=== PATIENT | male | born 1975 | race American Indian/Alaskan Native ===

== ENCOUNTER 2017-03-04 18:51 | Emergency (ER) | payer OTHER ==
[2017-03-04 20:28] VITALS: BP 136/88
[2017-03-04 21:08] LABS: Basophils % (Auto) 0.6 % (0.0-1.8); Eosinophils % (Auto) 1.5 % (0.0-4.3); Hematocrit 40.2 % (35.5-45.6); Hemoglobin 13.1 gm/dl (11.8-15.2); Mean Corpuscular HGB Conc 33 % (32-34); Mean Corpuscular Hemoglobin 28 pg (28-32); Mean Corpuscular Volume 86 fl (84-94); Platelet Count 176 K/mm3 (140-440); Red Blood Count 4.69 M/mm3 (3.65-5.03); White Blood Count 10.5 K/mm3 (4.5-11.0)
--- NOTE | 2017-03-04 21:30 | XRay Report ---
FINAL REPORT PROCEDURE: XR ANKLE 3 RT TECHNIQUE: Right ankle, three views HISTORY: pain to heel rad up leg, send for report COMPARISON: No prior studies are available for comparison. FINDINGS: No acute fracture or dislocation is seen. No focal osseous lesions are identified. Mild osteoarthritic changes are present. There is a 7 millimeter plantar calcaneal enthesophyte. There is a 4 millimeter enthesophyte at the Achilles insertion. IMPRESSION: No acute fracture is seen. Other findings as above.
[2017-03-04 21:31] LABS: Anion Gap 17 mmol/L; Blood Urea Nitrogen 12 mg/dL (9-20); Carbon Dioxide 26 mmol/L (22-30); Chloride 98.1 mmol/L (98-107); Glucose 158 mg/dL (75-100); Potassium 3.5 mmol/L (3.6-5.0); Sodium 138 mmol/L (137-145); Uric Acid 10.9 mg/dL (3.5-7.6)
--- NOTE | 2017-03-04 23:42 | Emergency Department Report ---
ED Lower Extremity HPI - General Chief Complaint: Extremity Injury, Lower Stated Complaint: SWOLLEN R LEG/R HEEL PAIN Time Seen by Provider: 03/04/17 23:20 Source: patient, family Mode of arrival: Ambulatory Limitations: No Limitations - History of Present Illness Initial Comments: Patient here complaining of right heel pain since swelling to right ankle. Denies any trauma. Denies history of gout. He said he's been taking ibuprofen which helps a little bit none today. Patient has no medical history per patient and no surgical history. Pain is 4-10 and it comes and goes worse with weightbearing. Denies any fever or chills. Denies any numbness or tingling to extremities. MD Complaint: other (pain to right ankle and heel) Onset/Timin -: days(s) Injury: Ankle: Right (pain and swelling), Foot: Right (pain to heel) Type of Injury: unknown Place: home Severity: mild Severity scale (0 -10): 4 Improves With: NSAID Worsens With: weight bearing, movement, palpation Context: other (none) Associated Symptoms: swelling, able to partially bear weight. denies: numbness , tingling, unable to bear weight Treatments Prior to Arrival: other (none) - Related Data Previous Rx's Medication Instructions Recorded Last Taken Type Ibuprofen [Motrin] 600 mg PO Q8H PRN #15 tablet 03/05/17 Unknown Rx predniSONE [Deltasone] 50 mg PO QDAY #5 tab 03/05/17 Unknown Rx Allergies Allergy/AdvReac Type Severity Reaction Status Date / Time No Known Allergies Allergy Verified 03/04/17 20:23 ED Review of Systems ROS: Stated complaint: SWOLLEN R LEG/R HEEL PAIN Other details as noted in HPI Comment: All other systems reviewed and negative Constitutional: denies: chills, fever ENT: denies: throat pain Respiratory: no symptoms reported Cardiovascular: denies: chest pain, palpitations, edema, syncope Gastrointestinal: denies: nausea, vomiting Musculoskeletal: joint swelling, arthralgia. denies: back pain, myalgia Skin: denies: rash Neurological: abnormal gait (to right ankle pain). denies: headache, weakness, numbness, paresthesias, confusion, vertigo ED Past Medical Hx - Past Medical History Previous Medical History?: No - Surgical History Past Surgical History?: No - Family History Family history: no significant - Social History Smoking Status: Never Smoker Substance Use Type: None - Medications Home Medications: Home Medications Medication Instructions Recorded Confirmed Last Taken Type Ibuprofen [Motrin] 600 mg PO Q8H PRN #15 tablet 03/05/17 Unknown Rx predniSONE [Deltasone] 50 mg PO QDAY #5 tab 03/05/17 Unknown Rx ED Physical Exam - General Limitations: No Limitations General appearance: alert, in no apparent distress - Head Head exam: Present: atraumatic, normocephalic, normal inspection - Eye Eye exam: Present: normal appearance, PERRL, EOMI Pupils: Present: normal accommodation - Neck Neck exam: Present: normal inspection, full ROM. Absent: tenderness, lymphadenopathy - Respiratory Respiratory exam: Present: normal lung sounds bilaterally. Absent: respiratory distress, chest wall tenderness - Cardiovascular Cardiovascular Exam: Present: regular rate, normal rhythm, normal heart sounds - GI/Abdominal GI/Abdominal exam: Present: soft, normal bowel sounds. Absent: distended, tenderness, guarding, rebound, rigid - Expanded Lower Extremity Exam Right Hip exam: Present: normal inspection, full ROM, pelvic stability. Absent: tenderness, swelling, abrasion, laceration, ecchymosis, deformity, crepidus, dislocation, erythema, external rotation, internal rotation, shortening Upper Leg exam: Present: normal inspection, full ROM. Absent: tenderness, swelling, abrasion, laceration, ecchymosis, deformity, crepidus, dislocation, erythema Knee exam: Present: normal inspection, full ROM, full knee extension. Absent: tenderness, swelling, abrasion, laceration, ecchymosis, deformity, crepidus, dislocation, erythema, effusion, pain w/ pronation/supination, posterior draw sign, pain/laxity with valgus, pain/laxity with varus Lower Leg exam: Present: normal inspection, full ROM. Absent: tenderness, swelling, abrasion, laceration, ecchymosis, deformity, crepidus, dislocation, erythema, palpable cord, Kamilah's sign Ankle exam: Present: tenderness (outer ankle), swelling (outer ankle), erythema (outer ankle). Absent: full ROM (lrom. due to pain), abrasion, laceration, ecchymosis, deformity, crepidus, dislocation Foot/Toe exam: Present: normal inspection, full ROM, calcaneal tenderness (mild) . Absent: tenderness, swelling, abrasion, laceration, ecchymosis, deformity, crepidus, dislocation, erythema, amputation, puncture wound, foreign body, tenderness at base of 5th metatarsal, nail avulsion, subungual hematoma Neuro vascular tendon exam: Present: no vascular compromise. Absent: pulse deficit, abnormal cap refill, motor deficit, sensory deficit, tendon deficit, extremity cold to touch, pallor, abnormal 2-point discrimination, decreased fine /light touch, foot drop, peroneal nerve deficit, significant pain with passive ROM of distal joint Gait: Positive: observed and limited by pain - Back Exam Back exam: Present: normal inspection, full ROM - Neurological Exam Neurological exam: Present: alert, oriented X3, normal gait, reflexes normal. Absent: motor sensory deficit - Psychiatric Psychiatric exam: Present: normal affect, normal mood - Skin Skin exam: Present: warm, dry, intact, normal color. Absent: rash ED Course Vital Signs 03/04/17 20:23 Temperature 98.7 F Pulse Rate 82 Respiratory 20 Rate Blood Pressure 136/88 [Right] O2 Sat by Pulse 100 Oximetry - Reevaluation(s) Reevaluation #1: 03/05/17 00:38 Seen given Toradol 60 mg IM and Deltasone and kcl of low potassium. 03/05/17 00:38 ED Lower Extremity MDM - Lab Data Result diagrams: 03/04/17 20:59 03/04/17 20:59 Lab Results 03/04/17 03/04/17 Range/Units 20:59 20:59 WBC 10.5 (4.5-11.0) K/mm3 RBC 4.69 (3.65-5.03) M/mm3 Hgb 13.1 (11.8-15.2) gm/dl Hct 40.2 (35.5-45.6) % MCV 86 (84-94) fl MCH 28 (28-32) pg MCHC 33 (32-34) % RDW 14.0 (13.2-15.2) % Plt Count 176 (140-440) K/mm3 Lymph % (Auto) 28.5 (13.4-35.0) % Dare % (Auto) 8.9 H (0.0-7.3) % Eos % (Auto) 1.5 (0.0-4.3) % Baso % (Auto) 0.6 (0.0-1.8) % Lymph # 3.0 (1.2-5.4) K/mm3 Dare # 0.9 H (0.0-0.8) K/mm3 Eos # 0.2 (0.0-0.4) K/mm3 Baso # 0.1 (0.0-0.1) K/mm3 Seg Neutrophils % 60.5 (40.0-70.0) % Seg Neutrophils # 6.3 (1.8-7.7) K/mm3 Sodium 138 (137-145) mmol/L Potassium 3.5 L (3.6-5.0) mmol/L Chloride 98.1 (98-107) mmol/L Carbon Dioxide 26 (22-30) mmol/L Anion Gap 17 mmol/L BUN 12 (9-20) mg/dL Creatinine 1.0 (0.8-1.5) mg/dL Estimated GFR > 60 ml/min BUN/Creatinine Ratio 12.00 % Glucose 158 H (75-100) mg/dL Uric Acid 10.9 H (3.5-7.6) mg/dL Calcium 9.0 (8.4-10.2) mg/dL - Radiology Data Radiology results: report reviewed X-ray of ankle reveals no acute fractures seen. No dislocation. No focal osseous lesions are identified. Mild osteoarthritic changes are present and there is a 7 mm plantar calcaneal enthesophyte. There is a 4 mm enthesophyte at the Achilles insertion. - Medical Decision Making ED course: She with acute gouty arthritis, right ankle pain, calcaneal enthesophyte. I discussed the patient is x-ray results and I told him that based on his diet over the past few days and is uric acid is elevated at 10.9 along with physical findings of red, hot swollen ankle he has gout flareup. I discussed with him that he will need to follow-up with his primary care doctor in 2-3 days for complete physical. I also discussed with him that his blood sugar was 158 and he needs to get checked for diabetes. She voices understanding of discharge instruction and treatment plan. He was given decadron 60 mg by mouth, potassium 40 mEq for potassium of 3.5 and Toradol 60 mg IM. Critical care attestation.: If time is entered above; I have spent that time in minutes in the direct care of this critically ill patient, excluding procedure time. ED Disposition Clinical Impression: Acute gouty arthritis, Enthesopathy of multiple sites of lower extremity, Hypokalemia Osteoarthritis Qualifiers: Osteoarthritis location: unspecified site Osteoarthritis type: unspecified Qualified Code(s): M19.90 - Unspecified osteoarthritis, unspecified site Disposition: DISCHARGED TO HOME OR SELFCARE Is pt being admited?: No Does the pt Need Aspirin: No Condition: Stable Instructions: Low Purine Diet (ED), Osteoarthritis (ED), Acute Gouty Arthritis (ED), Arthralgia (ED) Additional Instructions: Calcaneal spur: A bony spur, also known as a heel spur, that projects from the back or underside of the heel bone (the calcaneus) and that may make walking painful. Calcaneal spurs are associated with inflammation of the Achilles tendon (Achilles tendinitis), and cause tenderness and pain at the back of the heel, which is made worse by pushing off the ball of the foot. Spurs under the sole (the plantar area) are associated with inflammation of the plantar fascia, which is the bowstring-like tissue that stretches from the heel underneath the sole. These spurs can cause localized tenderness and pain that is made worse by stepping down on the heel. Calcaneal spurs and plantar fasciitis can occur alone , or they can be related to underlying diseases that cause arthritis, such as reactive arthritis and ankylosing spondylitis. Treatment is designed to decrease the inflammation and avoid reinjury. Heel lifts reduce stress on the Achilles tendon and relieve painful spurs at the back of the heel. Donut-shaped shoe inserts take pressure off plantar spurs. Infrequently, surgery is done on chronically inflamed spurs. follow up with orthopedic doctor Avoid high Purine foods. See discharge instructions Prescriptions: Ibuprofen [Motrin] 600 mg PO Q8H PRN #15 tablet PRN Reason: Pain predniSONE [Deltasone] 50 mg PO QDAY #5 tab Referrals: PRIMARY CAREMD [Primary Care Provider] - 2-3 Days KENNETH FAJARDO MD [Staff Physician] - 2-3 Days Forms: Work/School Release Form(ED)
[2017-03-05] MEDS: K-DUR PO ONE (00:25)
[2017-03-05] MEDS: DELTASONE PO ONE (00:25)
[2017-03-05] MEDS: TORADOL IM ONE (00:32)
== END 2017-03-05 00:55 | disposition home or self-care (01) ==
LOC: ED 18:51
DX: M10.9 Gout, unspecified (principal); M19.90 Unspecified osteoarthritis, unspecified site; E87.6 Hypokalemia
CPT/HCPCS: 36415; 73610; 80048; 84550; 85025; 96372; 99283; J1885; J7512